=== PATIENT | female | born 1950 | race Caucasian/White ===

== ENCOUNTER 2016-11-06 11:58 | Emergency (ER) | payer OTHER ==
[2016-11-06 12:32] LABS: % IMMATURE GRANULYOCYTES 0.4 % (0.0-1.1); ABSOLUTE IMMATURE GRANULOCYTES 0.05 10^3/uL (0.00-0.10); ADD DIFF? NO; ADD MORPH? NO; ADD SCAN? NO; ATYPICAL LYMPHOCYTE FLAG 0 (0-99); FRAGMENT RBC FLAG 0 (0-99); HEMATOCRIT 42.9 % (38.0-47.0); HEMOGLOBIN 14.9 g/dL (12.6-16.3); LEFT SHIFT FLG 0 (0-99); LIPEMIA HEMOLYSIS FLAG 90 (0-99); MEAN CELL HEMOGLOBIN 28.8 pg (27.9-34.1); MEAN CELL HEMOGLOBIN CONCENTR. 34.7 g/dL (32.4-36.7); MEAN PLATELET VOLUME 9.3 fL (8.7-11.7); PLATELET CLUMPS FLAG 0 (0-99); PLATELET COUNT 319 10^3/uL (150-400); RED BLOOD CELL COUNT 5.17 10^6/uL (4.18-5.33); RED CELL DISTRIBUTION WIDTH 12.5 % (11.5-15.2)
[2016-11-06 12:42] LABS: ALANINE AMINOTRANSFERASE 39 IU/L (9-52); ALBUMIN 4.9 g/dL (3.5-5.0); ALKALINE PHOSPHATASE 85 IU/L (38-126); ANION GAP 18 mEq/L (8-16); ASPARTATE AMINOTRANSFERASE 33 IU/L (14-46); BILIRUBIN,TOTAL 0.8 mg/dL (0.1-1.4); CALCIUM 9.9 mg/dL (8.5-10.4); CARBON DIOXIDE 20 mEq/l (22-31); CHLORIDE 98 mEq/L (97-110); CREATININE 0.5 mg/dL (0.6-1.0); ETHANOL SERUM < 10 mg/dL (0-10); GLOMERULAR FILTRATION RATE > 60; GLUCOSE 113 mg/dL (70-100); POTASSIUM 3.7 mEq/L (3.5-5.2); SODIUM 136 mEq/L (134-144); TOTAL PROTEIN 7.5 g/dL (6.3-8.2)
--- NOTE | 2016-11-06 12:58 | EDPHY ---
H & P Stated Complaint: M1 from senior care - Personal History Current Tetanus/Diphtheria Vaccine: Yes - Medical/Surgical History Hx Asthma: No Hx Chronic Respiratory Disease: No Hx Diabetes: No Hx Cardiac Disease: No Hx Renal Disease: No Hx Cirrhosis: No Hx Alcoholism: No Hx HIV/AIDS: No Hx Splenectomy or Spleen Trauma: No Other PMH: PNA, Breast CA - Social History Smoking Status: Never smoked Time Seen by Provider: 11/06/16 12:51 HPI/ROS: CHIEF COMPLAINT: M1 Hold HISTORY OF PRESENT ILLNESS: This patient is a 66 year old female arriving on M1 hold from senior care. On my initial interview, she states she is unable to focus because her bladder is full , and would like a Fuentes catheter placed. She states she has already given all the information regarding her history to the nurse. Past records obtained from [facility] and [facility]. She has been discharged to inpatient psychiatric care in the past. On second interview, she states she has spent the last 48-72 hours in and out of hospice care and was "manhandled into senior care" as she is unable to walk due to complications of metastatic breast cancer. She also states she has an order of protection for [facility] and a legal guardian to protect her rights, but has no contact information for him. She asked me to "please leave the room" repeatedly, stating she wants only comfort care so she can in peace. 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 She then gave a tearful and slightly disjointed account of her son recently dying of cardiac arrest but that he disappeared, possibly through abduction, while on his way to hospice care. She feels very emotionally distressed over this incident. REVIEW OF SYSTEMS: A 10 point review of systems was performed and is limited due to patient presentation. (Shari Bermudez) - Medical/Surgical History PMH: Psychiatric disorders unspecified. Breast cancer. Pneumonia. (Shari Bermudez) - Social History Additional Social History: Lives in [place]. (Shari Bermudez) - Physical Exam Exam: General Appearance: Alert, agitated Eyes: Pupils equal and round, no conjunctival pallor or injection ENT, Mouth: Mucous membranes moist Neck: Normal inspection Respiratory: Lungs are clear to auscultation Cardiovascular: Regular rate and rhythm Gastrointestinal: Abdomen is soft and non-tender Neurological: A&O, nonfocal exam Skin: Multiple areas of ecchymosis on lower extremities. Warm and dry, no rash Extremities: Nontender, no pedal edema Psychiatric: agitated, tangential thought process, delusional (Shari Bermudez) Constitutional: Initial Vital Signs Temperature (C) 37.2 C 11/06/16 12:02 Heart Rate 118 H 11/06/16 12:02 Respiratory Rate 20 11/06/16 12:02 Blood Pressure 190/118 H 11/06/16 12:02 O2 Sat (%) 92 11/06/16 12:02 O2 Delivery Mode Room Air Allergies/Adverse Reactions: acetaminophen [From Percocet] Allergy (Verified 11/06/16 12:01) codeine Allergy (Verified 11/06/16 12:01) hydrocodone Allergy (Verified 11/06/16 12:01) oxycodone Allergy (Verified 11/06/16 12:01) Home Medications: Medication Instructions Recorded ALPRAZolam [Xanax 0.5 MG (*)] 0.5 - 1 mg PO DAILY PRN 11/08/16 Anastrozole [Arimidex 1 mg (*)] 1 mg PO DAILY 11/08/16 Gabapentin [Neurontin 400 MG (*)] 800 mg PO HS PRN 11/08/16 Ibuprofen [Motrin (*)] 200 mg PO DAILY PRN 11/08/16 LORazepam [Ativan (*)] 1 mg PO DAILY PRN 11/08/16 Lisinopril [Zestril 40 mg (*)] 40 mg PO DAILY 11/08/16 Ondansetron Odt [Zofran Odt 4 mg 4 mg PO DAILY PRN 11/08/16 (*)] Oxybutynin Chloride 5 mg PO DAILY 11/08/16 Potassium Chloride Po [Potassium 20 meq PO DAILY 11/08/16 Chloride 20 mg/15 ml (*)] Pravastatin Sodium [Pravachol] 40 mg PO DAILY 11/08/16 Sertraline HCl [Zoloft 100mg (*)] 100 mg PO DAILY 11/08/16 Tolterodine Tartrate [Detrol] 2 mg PO BID 11/08/16 Triamcinolone 0.5% [Triamcinolone 1 onesimo TP DAILY 11/08/16 0.5% Cream (*)] amLODIPine BESYLATE [Norvasc 5 mg 5 mg PO DAILY 11/08/16 (*)] buPROPion XL [Wellbutrin Xl] 150 mg PO DAILY 11/08/16 traZODone [traZODONE 50MG (*)] 50 - 150 mg PO HS 11/08/16 Medical Decision Making - Diagnostics EKG Interpretation: 12 lead EKG is interpreted in Trace master View by emergency department physician. No acute ischemic changes. (Donna Guevara) ED Course/Re-evaluation: 66 year old female presents on M1 hold from senior care. She has history of unspecified psychiatric disorder and was recently admitted to inpatient psychiatric care at [facility] and evaluated for chest pain 10/31/16 in the ED at the [facility] in [place]. She has also been evaluated at [facility] in the past for numerous complaints. Yesterday, she was diagnosed with a UTI at [facility], but refused to take her Keflex and eventually had to be escorted out by security after repeatedly demanding she had the right to be evaluated in the emergency department by her oncologist. Today, her story is quite scattered and she appears acutely psychotic. Plan for labs including CBC , chemistries, EtOH, and drug screening. Plan for evaluation by mental health specialists. 3pm: signed over to Dr. Guevara at shift change. (Shari Bermudez) 0615AM: Patient is resting. Sleeping. She refused mental health evaluation. Plan is for re-evaluation this morning. Patient is here acutely psychotic. No acute events overnight. (Toño Woody) 3:00 p.m.: The patient was signed out to me by Dr. Bermudez at shift change. The patient is awaiting mental health evaluation. I met with her 4:00 p.m.. At that time the she began a rambling discourse about her metastatic breast cancer, impending , and the of her son. She tells me that she has a urinary tract infection, but refuses to give urine. She does not want to take antibiotics and reports having multiple antibiotic allergies. I have assured her that I will not force her to take antibiotics against her will. I have explained that we would like a urine sample to be able to make good medical decisions. She is requesting a transfer to [facility]. I have explained that I would not be able to even think about transferring her without a full medical evaluation, which would include a urine sample. She agreed to provide a urine sample. Her urine toxicology screen is negative. She has been cooperative throughout the remainder of my shift. At approximately 10:00 p.m. she requested Tylenol and Xanax 0.5 mg to help her sleep. These medications have been provided. Her care is being transferred to Dr. Woody at 11:30 p.m.. (Donna Guevara) 1:20 p.m. the patient will be admitted to [facility] by Dr. Polanco. Transfer paperwork will be completed. (Dejuan Murray) Other Provider: 0700: I assumed care of this patient at shift change from Dr. Woody. The plan is for inpatient placement. She is currently sleeping. Patient remained stable throughout the emergency department shift. She continues to be psychotic. We continue to await placement. Patient care was assumed by Dr. Donna Guevara at change of shift, 3:00 p.m. ( Irasema Barraza) 2:45 p.m. on 11/07/2016. I assumed care of this patient Dr. Irasema Barraza. I know her from my shift yesterday. Awaiting placement. Remained stable with no new complaints or requests during my shift. She is being considered for hospitalization in [place] and an EKG was requested. This was done and reviewed by me. There are no acute ischemic changes. She has sinus rhythm with a rate of 84. Her care is being transferred to Dr. Woody at 11:00 p.m.. (Donna Guevara) Care assumed from Dr. Murray at 2:50 p.m. with plan for inpatient psychiatric admission for acute psychosis. The patient will be transferred to [facility] for inpatient psychiatric hospital bed not available at this facility, in stable condition; accepting physician is Dr. Lagos. (Jean-Paul Godinez) - Data Points Laboratory Results: Laboratory Results 11/08/16 14:30 11/06/16 12:20 11/08/16 14:30 WBC 10.16 10^3/uL H 10^3/uL (3.80-9.50) RBC 5.00 10^6/uL 10^6/uL (4.18-5.33) Hgb 14.8 g/dL g/dL (12.6-16.3) Hct 42.1 % % (38.0-47.0) MCV 84.2 fL fL (81.5-99.8) MCH 29.6 pg pg (27.9-34.1) MCHC 35.2 g/dL g/dL (32.4-36.7) RDW 12.5 % % (11.5-15.2) Plt Count 331 10^3/uL 10^3/uL (150-400) MPV 9.5 fL fL (8.7-11.7) Neut % (Auto) 73.7 % % (39.3-74.2) Lymph % (Auto) 16.9 % % (15.0-45.0) Waldo % (Auto) 7.5 % % (4.5-13.0) Eos % (Auto) 1.1 % % (0.6-7.6) Baso % (Auto) 0.4 % % (0.3-1.7) Nucleat RBC Rel Count 0.0 % % (0.0-0.2) Absolute Neuts (auto) 7.49 10^3/uL H 10^3/uL (1.70-6.50) Absolute Lymphs (auto) 1.72 10^3/uL 10^3/uL (1.00-3.00) Absolute Monos (auto) 0.76 10^3/uL 10^3/uL (0.30-0.80) Absolute Eos (auto) 0.11 10^3/uL 10^3/uL (0.03-0.40) Absolute Basos (auto) 0.04 10^3/uL 10^3/uL (0.02-0.10) Absolute Nucleated RBC 0.00 10^3/uL 10^3/uL (0-0.01) Immature Gran % 0.4 % % (0.0-1.1) Immature Gran # 0.04 10^3/uL 10^3/uL (0.00-0.10) Medications Given: Discontinued Medications Acetaminophen (Tylenol) 650 mg PO EDNOW ONE Stop: 11/06/16 22:49 Last Admin: 11/06/16 23:09 Dose: 650 mg Alprazolam (Xanax) 0.5 mg PO EDNOW ONE Stop: 11/06/16 22:49 Last Admin: 11/06/16 23:09 Dose: 0.5 mg Alprazolam (Xanax) 0.5 mg PO EDNOW ONE Stop: 11/07/16 16:35 Last Admin: 11/07/16 16:39 Dose: 0.5 mg Alprazolam (Xanax) 0.5 mg PO EDNOW ONE Stop: 11/08/16 11:31 Last Admin: 11/08/16 11:40 Dose: 0.5 mg Ibuprofen (Motrin) 600 mg PO EDNOW ONE Stop: 11/07/16 16:34 Last Admin: 11/07/16 16:40 Dose: 600 mg Ibuprofen (Motrin) 600 mg PO EDNOW ONE Stop: 11/08/16 11:57 Last Admin: 11/08/16 11:57 Dose: 600 mg Lorazepam (Ativan) 1 mg PO EDNOW ONE Stop: 11/06/16 14:39 Last Admin: 11/06/16 14:43 Dose: Not Given Nicotine (Nicoderm Cq) 21 mg TD EDNOW ONE Stop: 11/06/16 14:40 Last Admin: 11/06/16 14:44 Dose: Not Given Departure - Departure Disposition: Other Psych, Not Orte[place] Clinical Impression: Acute psychosis Condition: Fair Referrals: Patient,NotPresent [Primary Care Provider] - As per Instructions Report Scribed for: Shari Bermudez Report Scribed by: Yadi Conner Date of Report: 11/06/16 Time of Report: 13:00 Physician Review and Approval Statement: 11/06/16 13:00 Portions of this note were transcribed by a medical dermatologist. I personally performed a history, physical exam, medical decision making, and confirmed accuracy of information the transcribed note. (Shari Bermudez)
[2016-11-06] MEDS ORDERED: LORazepam 1 MG TAB PO ONE (14:38)
[2016-11-06] MEDS ORDERED: NICOTINE 21 MG/24 HR PATCH TD ONE (14:39)
[2016-11-06] MEDS ORDERED: ACETAMINOPHEN 325 MG TAB PO ONE (22:48)
[2016-11-06] MEDS ORDERED: ALPRAZolam 0.25 MG TAB PO ONE (22:48)
[2016-11-07] MEDS ORDERED: IBUPROFEN 600 MG TAB PO ONE (16:33)
[2016-11-07] MEDS ORDERED: ALPRAZolam 0.25 MG TAB PO ONE (16:34)
--- NOTE | 2016-11-07 22:01 | CPEKG ---
Heart Rate: 84 RR Interval: 714 P-R Interval: 148 QRSD Interval: 86 QT Interval: 380 QTC Interval: 450 P [place]: 4 QRS [place]: 16 T Wave [place]: 20 EKG Severity - ABNORMAL ECG - EKG Impression: SINUS RHYTHM EKG Impression: CONSIDER LEFT VENTRICULAR HYPERTROPHY Electronically Signed By: Donna Guevara 08-Nov-2016 00:02:11
[2016-11-08 08:32] VITALS: TEMP 98.6; O2SAT 94
[2016-11-08] MEDS ORDERED: ALPRAZolam 0.25 MG TAB PO ONE ×2 (11:30→18:00)
[2016-11-08] MEDS ORDERED: IBUPROFEN 600 MG TAB PO ONE ×2 (11:55→11:56)
[2016-11-08 15:10] VITALS: BP 146/95
[2016-11-08 15:43] LABS: % IMMATURE GRANULYOCYTES 0.4 % (0.0-1.1); ABSOLUTE IMMATURE GRANULOCYTES 0.04 10^3/uL (0.00-0.10); ADD DIFF? NO; ADD MORPH? NO; ADD SCAN? NO; ATYPICAL LYMPHOCYTE FLAG 0 (0-99); FRAGMENT RBC FLAG 0 (0-99); HEMATOCRIT 42.1 % (38.0-47.0); HEMOGLOBIN 14.8 g/dL (12.6-16.3); LEFT SHIFT FLG 0 (0-99); LIPEMIA HEMOLYSIS FLAG 90 (0-99); MEAN CELL HEMOGLOBIN 29.6 pg (27.9-34.1); MEAN CELL HEMOGLOBIN CONCENTR. 35.2 g/dL (32.4-36.7); MEAN CELL VOLUME 84.2 fL (81.5-99.8); MEAN PLATELET VOLUME 9.5 fL (8.7-11.7); PLATELET CLUMPS FLAG 0 (0-99); PLATELET COUNT 331 10^3/uL (150-400); RED CELL DISTRIBUTION WIDTH 12.5 % (11.5-15.2)
[2016-11-08 17:15] VITALS: PULSE 100
[2016-11-08 18:23] VITALS: RESP 16
== END 2016-11-08 18:19 ==
DX: F23 Brief psychotic disorder (principal); Z85.3 Personal history of malignant neoplasm of breast
CPT/HCPCS: 80305; G0480